=== PATIENT | female | born 1980 | race Caucasian/White ===

== ENCOUNTER 2021-06-02 00:55 | Emergency (ER) | payer MEDICAID, OTHER ==
[~2021-06-02] VITALS: Ht 160 cm; Wt 89.8 kg
[2021-06-02 00:57] VITALS: BP 117/72
== END 2021-06-02 04:07 | disposition left against medical advice (07) ==
LOC: ER 00:55
DX: L02.211 Cutaneous abscess of abdominal wall (principal); Z53.21 Procedure and treatment not carried out due to patient leaving prior to being seen by health care provider